=== PATIENT | female | born 1980 | race Caucasian/White ===

== ENCOUNTER 2016-08-12 15:42 | Emergency (ER) | payer BC ==
--- NOTE | ~2016-08-12 | CR253 ---
[facility] A Service of [facility] RADIOLOGY TEXT RESULTS PATIENT: GUY KELLER LOCATION: [place] : [birth year] UNIT #: [id number] AGE: [address]: Belkys Flores SEX: F ORDER DR: [id number] [facility] [address] [place], [place] [address] [id number] E MR#: [id number] Acc #: [id number] NAME: GUY KELLER : 1980 SEX: F STUDY DATE/TIME: 08/12/2016 16:15 UNIT: [facility] ROOM: STUDY DESCRIPTION: CR Tibia and Fibula 2 Views Rt Attending Physician: Belkys Flores P.A.-C. Ordering Physician: Belkys Flores P.A.-C. Primary Care Physician: Noe Galindo M.D. MEDICAL IMAGING REPORT This report is preliminary unless electronic signature is present EXAM Right tibia-fibula series HISTORY Right lateral leg and ankle pain, swelling. Twisted ankle getting out of truck today. TECHNIQUE AP and lateral radiographs of the right tibia and fibula are presented. FINDINGS Complete oblique fracture of the distal fibula/lateral malleolus extending from posterior-superior to anterior-inferior with the distal fracture fragment displaced posteriorly by about 3 mm. No significant angulation is seen. No other fractures. The ankle mortise joint is incompletely visualized but appears grossly normally located. The knee joint is unremarkable in visualized extent. Soft tissue swelling, most pronounced anterior and lateral aspect of the visualized ankle without soft tissue defect, subcutaneous air or radiodense foreign body. Dictated by... Celestino Richard M.D. THIS IS AN ELECTRONICALLY VERIFIED REPORT Celestino Richard M.D. at 08/14/2016 10:44 PM MARCE/talia TD: 08/13/2016 00:47 JOB #: [id number] MEDICAL IMAGING REPORT [facility] A Service of [facility] RADIOLOGY TEXT RESULTS PATIENT: GUY KELLER LOCATION: [place] : [birth year] UNIT #: [id number] AGE: [address]: Belkys Flores SEX: F ORDER DR: Page 1 of 1 COPY
--- NOTE | ~2016-08-12 | CR18 ---
[facility] A Service of [facility] RADIOLOGY TEXT RESULTS PATIENT: GUY KELLER LOCATION: [facility] : [birth year] UNIT #: [id number] AGE: [address]: Belkys Flores SEX: F ORDER DR: [id number] [facility] [address] [place], [place] [address] [id number] E MR#: [id number] Acc #: [id number] NAME: GUY KELLER : 1980 SEX: F STUDY DATE/TIME: 08/12/2016 16:15 UNIT: [facility] ROOM: STUDY DESCRIPTION: CR Ankle 2 Views Rt Attending Physician: Belkys Flores P.A.-C. Ordering Physician: Belkys Flores P.A.-C. Primary Care Physician: Noe Galindo M.D. MEDICAL IMAGING REPORT This report is preliminary unless electronic signature is present EXAM Right ankle HISTORY Right ankle pain, twisted ankle today. FINDINGS 3 views of the right ankle were obtained. There is a slightly displaced fracture running obliquely through the distal fibula. There is lateral soft tissue swelling. IMPRESSION Oblique fracture through the distal fibula which is minimally displaced and lateral soft tissue swelling is present. Otherwise study is normal. Dictated by... Alen Hill M.D. THIS IS AN ELECTRONICALLY VERIFIED REPORT Alen Hill M.D. at 08/13/2016 6:06 AM PERCY/bill TD: 08/13/2016 00:37 JOB #: [id number] MEDICAL IMAGING REPORT Page 1 of 1 COPY
== END 2016-08-12 17:45 | disposition home or self-care (01) ==
LOC: CFTX 15:42 → CED 15:42 → CFTX 16:04
DX: S82.831A Other fracture of upper and lower end of right fibula, initial encounter for closed fracture (principal); S93.401A Sprain of unspecified ligament of right ankle, initial encounter; F17.210 Nicotine dependence, cigarettes, uncomplicated; G35 Multiple sclerosis; Z79.899 Other long term (current) drug therapy; W18.39XA Other fall on same level, initial encounter; Y92.009 Unspecified place in unspecified non-institutional (private) residence as the place of occurrence of the external cause
CPT/HCPCS: 29515; 73590; 73600; 99284